=== PATIENT | male | born 1960 | race Asian ===

== ENCOUNTER 2019-10-26 09:45 | Outpatient (CLI) | payer MEDICAID ==
[~2019-10-26] VITALS: Ht 185.4 cm; Wt 107.5 kg
[2019-10-26 10:25] VITALS: BP 124/92
[2019-10-26] MEDS ORDERED: LOSARTAN POTASS50 MG ORAL (14:57)
[2019-10-26] MEDS ORDERED: HYDROCHLOROTH12.5 MG ORAL (14:57)
[2019-10-26] MEDS ORDERED: OMEPRAZOLE20 M2 ORAL (14:57)
[2019-10-26] MEDS ORDERED: VIAGRA50 MG ORAL (14:57)
--- NOTE | 2019-10-26 18:45 | Consultation ---
DATE OF CONSULTATION: 10/26/2019 CONSULTING PHYSICIAN: Carlos Gould M.D. CHIEF COMPLAINT: Dysphagia, need for screening colonoscopy. HISTORY OF PRESENT ILLNESS: This is a very pleasant 59-year-old male with complaint of one year of dysphagia, food getting stuck in his throat to the point that he has to walk around, drink something and hoping that it is going to go down. He has been taking omeprazole over the counter without any significant improvement. No prior history of endoscopy. Last colonoscopy was 10 years ago. PAST MEDICAL HISTORY: Hypertension. PAST SURGICAL HISTORY: Lung biopsy, elbow surgery, and ankle surgery. MEDICATIONS: Please see medication reconciliation list. FAMILY HISTORY: Noncontributory. SOCIAL HISTORY: The patient denies any tobacco usage. Drinks socially. No IV drug abuse. ALLERGIES: No known drug allergies. REVIEW OF SYSTEMS: Please see the HPI. PHYSICAL EXAMINATION: VITAL SIGNS: Temperature 99.2, blood pressure 124/92, pulse 96, respirations 20. HEENT: Normocephalic and atraumatic. Sclerae anicteric. NECK: Supple. No evidence of obvious lymphadenopathy. CARDIOVASCULAR: Regular rate and rhythm. Plus S1-S2. LUNGS: Clear to auscultation bilaterally. ABDOMEN: Positive bowel sounds. Soft and nontender. No rebound. No guarding. No peritoneal sign. EXTREMITIES: No cyanosis. No clubbing. No edema. ASSESSMENT AND PLAN: This is a 59-year-old male with solid dysphagia. For that, he needs an endoscopy, which we are going to get authorization and schedule when the authorization is obtained. Meanwhile, we are going to put him on omeprazole twice a day all waiting for that. In terms of colonoscopy, he needs a screening colon. We will schedule him with endoscopy when authorization is obtained. Carlos Gould M.D. DR: ZANDER JOB#: [id number] CC:
== END 2019-10-26 14:29 | disposition home or self-care (01) ==
LOC: PAN 09:45
DX: R13.10 Dysphagia, unspecified (principal); I10 Essential (primary) hypertension
CPT/HCPCS: G0463